=== PATIENT | female | born 1985 | race Caucasian/White ===

== ENCOUNTER 2017-10-10 19:01 | Emergency (ER) | payer BC ==
[2017-10-10 19:42] VITALS: BP 132/85
--- NOTE | 2017-12-12 21:37 | ED Physician Documentation ---
Sore Throat/Dental Pain - HISTORIAN Historian: patient - HPI Stated Complaint: dental pain Chief Complaint: Dental Pain Onset: days ago (1) - ROS CONST: no problems - PAST HX Past History: none Allergies/Adverse Reactions: Allergies Allergy/AdvReac Type Severity Reaction Status Date / Time No Known Allergies Allergy Verified 10/10/17 19:19 Home Medications: Ambulatory Orders Medication Instructions Recorded NK [NK] 10/10/17 - SOCIAL HX Smoking History: cigarettes Alcohol Use: occasionally Drug Use: none - FAMILY HX Family History: No - VITAL SIGNS Vital Signs: Vital Signs Temp Pulse Resp BP Pulse Ox 98.6 F 127 H 16 132/85 98 10/10/17 19:01 10/10/17 19:57 10/10/17 19:57 10/10/17 19:57 10/10/17 19:57 - REVIEWED ASSESSMENTS Nursing Assessment Reviewed: Yes Vitals Reviewed: Yes Dental Pain Physical Exam - EXAM General Appearance: mild distress Head/Neck: head nml inspection Eyes: eyes nml inspection Mouth/Throat: lips nml Respiratory: no resp. distress, breath sounds nml CVS: reg. rate & rhythm, heart sounds nml Skin: warm/dry, normal color. No: cyanosis, diaphoresis Neuro/Psych: No: weakness Discharge Clincal Impression: Pain due to dental caries Referrals: Primary Doctor,No [Primary Care Provider] - 2 Days Condition: Good Disposition: 01 HOME, SELF-CARE Decision to Admit: NO Decision Time: 19:45
== END 2017-10-10 19:51 | disposition home or self-care (01) ==
LOC: ED 19:01
DX: K02.9 Dental caries, unspecified (principal)